=== PATIENT | female | born 1985 ===

== ENCOUNTER 2023-02-01 18:16 | Inpatient (IN) | payer MEDICAID, OTHER ==
[~2023-02-01] VITALS: Ht 165.1 cm; Wt 48.1 kg
[2023-02-01] MEDS ORDERED: SODIUM CHLORIDE 0.9% 1,000 ML IV ONE ×2 (18:45→20:00)
[2023-02-01 19:18] LABS: BASOPHILS % (AUTO) 0.7 % (0.0-2.0); EOSINOPHILS % (AUTO) 2.2 % (1.0-6.0); HEMOGLOBIN 12.1 g/dL (12.0-16.0); LYMPHOCYTES # (AUTO) 3.6 K/uL (1.0-4.8); LYMPHOCYTES % (AUTO) 53.9 % (22.0-44.0); MEAN CORPUSCULAR HEMOGLOBIN 31.1 pg (26.0-34.0); MEAN CORPUSCULAR HGB CONC 33.5 G/dL (31.0-37.0); MEAN CORPUSCULAR VOLUME 93 fL (80-100); MONOCYTES # (AUTO) 0.4 K/uL (0.1-1.0); MONOCYTES % (AUTO) 5.6 % (2.0-9.0); NEUTROPHILS # (AUTO) 2.5 K/uL (1.8-7.7); NEUTROPHILS % (AUTO) 37.6 % (40.0-70.0); PLATELET COUNT (AUTO) 294 K/uL (150-450); RED BLOOD CELL COUNT(AUTO) 3.88 MIL/uL (4.00-5.20); RED CELL DISTRIBUTION WIDTH 12.8 % (11.5-14.5); WHITE BLOOD COUNT (AUTO) 6.7 K/uL (4.5-11.0)
[2023-02-01 19:34] LABS: B-TYPE NATRIURETIC PEPTIDE < 5 pg/mL (0-100)
[2023-02-01 19:38] LABS: ALCOHOL, BLOOD (SERUM) < 3 mg/dL (0-10)
[2023-02-01 19:45] LABS: SALICYLATE 1.2 mg/dL (2.8-20.0); TROPONIN I-HIGH SENSITIVITY Less Than 4 ng/L (<51)
[2023-02-01 19:49] LABS: ALANINE AMINOTRANSFERASE 48 U/L (12-78); ALBUMIN 3.8 g/dL (3.4-5.0); ALKALINE PHOSPHATASE 64 U/L (46-116); ANION GAP 12 mmol/L (8-16); ASPARTATE AMINOTRANSFERASE 40 U/L (15-37); BILIRUBIN,TOTAL 0.7 mg/dL (0.1-1.0); CALCIUM, TOTAL 8.4 mg/dL (8.8-10.5); CARBON DIOXIDE 24 mmol/L (22-29); CHLORIDE 98 mmol/L (98-107); CREATINE KINASE, TOTAL ONLY 305 U/L (26-192); CREATININE 0.71 mg/dL (0.60-1.30); GLOMERULAR FILTR. RATE CALC > 60 mL/min (>60); GLUCOSE,RANDOM 86 mg/dL (70-110); SODIUM SERUM 133 mmol/L (136-145); TOTAL PROTEIN, SERUM 7.3 g/dL (6.4-8.2); UREA NITROGEN, BLOOD 29 mg/dL (7-18)
[2023-02-01 19:56] LABS: POTASSIUM 2.7 mmol/L (3.5-5.1)
[2023-02-01 19:58] LABS: ACETAMINOPHEN < 2 mcg/mL (10-30)
[2023-02-01] MEDS: POTASSIUM CHL 10 MEQ/WATER 50 ML IV SCH ×3 (20:23→22:16)
[2023-02-01] MEDS ORDERED: BISACODYL 10 MG RECTAL RECTAL SUPPOSITORY PR PRN (21:30)
[2023-02-01] MEDS ORDERED: ACETAMINOPHEN 325 MG TABLET PO PRN (21:30)
[2023-02-01] MEDS ORDERED: MAGNESIUM HYDROXIDE SUSPENSION 30 ML UDCUP PO PRN (21:30)
[2023-02-01] MEDS ORDERED: HYDROCODONE/ACETAMINOPHEN 5-325 MG TABLET PO PRN (21:30)
[2023-02-01] MEDS ORDERED: POTASSIUM CHLORIDE 20 MEQ ER TABLET PO PRN (21:30)
[2023-02-01] MEDS ORDERED: ONDANSETRON HCL 4 MG/2 ML VIAL IVP PRN (21:30)
[2023-02-01] MEDS ORDERED: POTASSIUM CHL 10 MEQ/WATER 50 ML IV PRN (21:30)
[2023-02-01] MEDS ORDERED: MORPHINE SULFATE 2 MG/ML SYRINGE IVP PRN (21:30)
[2023-02-01] MEDS ORDERED: ZOLPIDEM TARTRATE 5 MG TABLET PO PRN (21:30)
[2023-02-01] MEDS ORDERED: MAGNESIUM SULFATE 2 GM, MVI, ADULT NO.1 WITH VIT K 10 ML, THIAMINE 100 MG, FOLIC ACID 1... IV ONE ×5 (22:00)
[2023-02-02] MEDS: HEPARIN SODIUM,PORCINE 5,000 UNITS/ML VIAL SQ SCH ×3 (00:28→16:00)
[2023-02-02 06:10] LABS: BASOPHILS % (AUTO) 0.7 % (0.0-2.0); EOSINOPHILS % (AUTO) 2.6 % (1.0-6.0); HEMATOCRIT 33.1 % (36-46); HEMOGLOBIN 11.1 g/dL (12.0-16.0); LYMPHOCYTES # (AUTO) 3.3 K/uL (1.0-4.8); LYMPHOCYTES % (AUTO) 58.8 % (22.0-44.0); MEAN CORPUSCULAR HEMOGLOBIN 31.9 pg (26.0-34.0); MEAN CORPUSCULAR HGB CONC 33.6 G/dL (31.0-37.0); MEAN CORPUSCULAR VOLUME 95 fL (80-100); MONOCYTES # (AUTO) 0.4 K/uL (0.1-1.0); MONOCYTES % (AUTO) 7.5 % (2.0-9.0); NEUTROPHILS # (AUTO) 1.7 K/uL (1.8-7.7); NEUTROPHILS % (AUTO) 30.4 % (40.0-70.0); PLATELET COUNT (AUTO) 221 K/uL (150-450); RED BLOOD CELL COUNT(AUTO) 3.49 MIL/uL (4.00-5.20); WHITE BLOOD COUNT (AUTO) 5.5 K/uL (4.5-11.0)
[2023-02-02 06:17] LABS: ANION GAP 9 mmol/L (8-16); CALCIUM, TOTAL 7.4 mg/dL (8.8-10.5); CARBON DIOXIDE 22 mmol/L (22-29); CHLORIDE 106 mmol/L (98-107); CREATININE 0.48 mg/dL (0.60-1.30); GLOMERULAR FILTR. RATE CALC > 60 mL/min (>60); GLUCOSE,RANDOM 76 mg/dL (70-110); POTASSIUM 3.9 mmol/L (3.5-5.1); SODIUM SERUM 137 mmol/L (136-145); UREA NITROGEN, BLOOD 21 mg/dL (7-18)
[2023-02-02] MEDS: DOCUSATE SODIUM 100 MG CAPSULE PO SCH ×2 (07:50→21:00)
[2023-02-02] MEDS: PANTOPRAZOLE SODIUM 40 MG DR TABLET PO SCH (07:51)
[2023-02-02] MEDS ORDERED: DiphenhydrAMINE HCL 50 MG/ML VIAL ONE (08:29)
[2023-02-02] MEDS ORDERED: LORazepam 2 MG/ML VIAL ONE (08:29)
[2023-02-02] MEDS ORDERED: HALOPERIDOL LACTATE 5 MG/ML VIAL ONE (08:29)
[2023-02-02] MEDS ORDERED: LORazepam 2 MG/ML VIAL IM ONE (08:45)
[2023-02-02] MEDS ORDERED: HALOPERIDOL LACTATE 5 MG/ML VIAL IM ONE (08:45)
[2023-02-02] MEDS ORDERED: DiphenhydrAMINE HCL 50 MG/ML VIAL IM ONE (08:45)
[2023-02-02 09:41] LABS: GLUCOMETER DEV NAME(LOC) ER.6; GLUCOSE,POINT OF CARE 118 MG/DL (70-110)
[2023-02-02] MEDS ORDERED: ZOLPIDEM TARTRATE 10 MG TABLET PO PRN (10:15)
[2023-02-02 11:22] LABS: COVID AG,FIA SOURCE NASAL SWAB
[2023-02-02 11:47] LABS: SARS-COV2 (COVID) ANTIGEN,FIA Negative (Negative)
[2023-02-03] MEDS: HEPARIN SODIUM,PORCINE 5,000 UNITS/ML VIAL SQ SCH
[2023-02-03 02:20] VITALS: RESP 16; TEMP 97.2
[2023-02-03] MEDS: PANTOPRAZOLE SODIUM 40 MG DR TABLET PO SCH ×2 (08:50→09:00)
[2023-02-03] MEDS: DOCUSATE SODIUM 100 MG CAPSULE PO SCH ×4 (08:50→17:00)
[2023-02-03 10:01] VITALS: BP 110/82; PULSE 96; RESP 18; TEMP 97
[2023-02-03 20:58] VITALS: RESP 18
[2023-02-04 07:53] LABS: BASOPHILS % (AUTO) 0.5 % (0.0-2.0); EOSINOPHILS % (AUTO) 1.6 % (1.0-6.0); HEMOGLOBIN 12.5 g/dL (12.0-16.0); LYMPHOCYTES # (AUTO) 2.1 K/uL (1.0-4.8); LYMPHOCYTES % (AUTO) 35.5 % (22.0-44.0); MEAN CORPUSCULAR HEMOGLOBIN 31.7 pg (26.0-34.0); MEAN CORPUSCULAR VOLUME 96 fL (80-100); MONOCYTES # (AUTO) 0.4 K/uL (0.1-1.0); MONOCYTES % (AUTO) 5.8 % (2.0-9.0); NEUTROPHILS # (AUTO) 3.4 K/uL (1.8-7.7); NEUTROPHILS % (AUTO) 56.6 % (40.0-70.0); PLATELET COUNT (AUTO) 249 K/uL (150-450); RED BLOOD CELL COUNT(AUTO) 3.95 MIL/uL (4.00-5.20); RED CELL DISTRIBUTION WIDTH 12.8 % (11.5-14.5)
[2023-02-04 08:02] LABS: ANION GAP 4 mmol/L (8-16); CALCIUM, TOTAL 8.2 mg/dL (8.8-10.5); CARBON DIOXIDE 31 mmol/L (22-29); CHLORIDE 103 mmol/L (98-107); CREATININE 0.53 mg/dL (0.60-1.30); GLOMERULAR FILTR. RATE CALC > 60 mL/min (>60); GLUCOSE,RANDOM 82 mg/dL (70-110); POTASSIUM 3.7 mmol/L (3.5-5.1); SODIUM SERUM 138 mmol/L (136-145); UREA NITROGEN, BLOOD 11 mg/dL (7-18)
[2023-02-04 08:27] VITALS: BP 96/99; PULSE 76; RESP 18; TEMP 98
[2023-02-04] MEDS: PANTOPRAZOLE SODIUM 40 MG DR TABLET PO SCH (08:56)
[2023-02-04] MEDS: DOCUSATE SODIUM 100 MG CAPSULE PO SCH ×2 (08:56→16:45)
[2023-02-04] MEDS: RisperiDONE 1 MG TABLET PO SCH (16:45)
[2023-02-04 21:25] VITALS: BP 106/80; PULSE 78; RESP 18; TEMP 97.6
[2023-02-05 08:41] VITALS: BP 98/59; PULSE 78; RESP 18; TEMP 97.6
[2023-02-05] MEDS: DOCUSATE SODIUM 100 MG CAPSULE PO SCH ×2 (08:44→16:18)
[2023-02-05] MEDS: RisperiDONE 1 MG TABLET PO SCH ×2 (08:44→16:18)
[2023-02-05] MEDS: PANTOPRAZOLE SODIUM 40 MG DR TABLET PO SCH (08:44)
[2023-02-05 09:53] LABS: APPEARANCE,URINE HAZY (CLEAR); BILIRUBIN,URINE NEGATIVE (NEGATIVE); COLOR,URINE YELLOW (YELLOW); GLUCOSE, URINE (UA) NEGATIVE (NEGATIVE); KETONES,URINE NEGATIVE (NEGATIVE); LEUKOCYTE ESTERASE ,URINE LARGE (NEGATIVE); NITRATE,URINE POSITIVE (NEGATIVE); OCCULT BLOOD,URINE TRACE (NEGATIVE); PH,URINE 6.5 (5.0-8.0); PH,URINE DRUG SCREEN 6.5 (5.0-8.0); PROTEIN,URINE TRACE mg/dL (NEGATIVE); SPECIFIC GRAVITIY, URINE 1.019 (1.003-1.030); UROBILINOGEN,URINE <=1.0 mg/dL (<=1.0)
[2023-02-05 10:01] LABS: ALCOHOL, URINE DRUG SCREEN NEGATIVE (NEGATIVE); AMPHET/METH SCREEN,URINE NEGATIVE (NEGATIVE); BARBITURATE SCREEN, URINE NEGATIVE (NEGATIVE); BENZODIAZEPINES SCREEN,URINE NEGATIVE (NEGATIVE); CANNABINOID SCREEN,URINE NEGATIVE (NEGATIVE); COCAINE SCREEN,URINE NEGATIVE (NEGATIVE); METHADONE SCREEN, URINE NEGATIVE (NEGATIVE); OPIATE SCREEN,URINE NEGATIVE (NEGATIVE); PHENCYCLIDINE SCREEN,URINE NEGATIVE (NEGATIVE)
[2023-02-05 10:19] LABS: BACTERIA,URINE Many /HPF (None Seen); SQUAMOUS EPITHELIAL CELL,UR Few /LPF (None Seen)
[2023-02-05] MEDS: LORazepam 2 MG TABLET PO PRN (13:47)
[2023-02-05] MEDS: HALOPERIDOL 5 MG TABLET PO PRN (13:47)
[2023-02-05] MEDS: NITROFURANTOIN MONOHYD/M-CRYST 100 MG CAPSULE [MACROBID] PO SCH (16:18)
[2023-02-05 21:20] VITALS: RESP 18
[2023-02-06] MEDS: DOCUSATE SODIUM 100 MG CAPSULE PO SCH ×2 (08:31→16:48)
[2023-02-06] MEDS: NITROFURANTOIN MONOHYD/M-CRYST 100 MG CAPSULE [MACROBID] PO SCH ×2 (08:31→16:48)
[2023-02-06] MEDS: RisperiDONE 1 MG TABLET PO SCH ×2 (08:31→16:48)
[2023-02-06] MEDS: PANTOPRAZOLE SODIUM 40 MG DR TABLET PO SCH (08:31)
[2023-02-06 12:54] VITALS: RESP 17
[2023-02-06 20:34] VITALS: RESP 18
[2023-02-07] MEDS: LORazepam 2 MG TABLET PO PRN (06:41)
[2023-02-07] MEDS: RisperiDONE 1 MG TABLET PO SCH ×2 (07:49→16:51)
[2023-02-07] MEDS: PANTOPRAZOLE SODIUM 40 MG DR TABLET PO SCH ×2 (07:49→16:53)
[2023-02-07] MEDS: NITROFURANTOIN MONOHYD/M-CRYST 100 MG CAPSULE [MACROBID] PO SCH ×2 (07:49→16:51)
[2023-02-07] MEDS: DOCUSATE SODIUM 100 MG CAPSULE PO SCH ×2 (07:50→16:51)
[2023-02-07 09:53] VITALS: BP 104/67; PULSE 75; RESP 18; TEMP 97.5
[2023-02-07] MEDS: DIVALPROEX SODIUM 500 MG DR TABLET PO SCH (16:52)
[2023-02-07] MEDS: LITHIUM CARBONATE 300 MG CAPSULE PO SCH (16:52)
[2023-02-07 21:52] VITALS: BP 110/70; PULSE 76; RESP 17; TEMP 97.6
[2023-02-08] MEDS: DOCUSATE SODIUM 100 MG CAPSULE PO SCH ×2 (08:22→16:32)
[2023-02-08] MEDS: NITROFURANTOIN MONOHYD/M-CRYST 100 MG CAPSULE [MACROBID] PO SCH ×2 (08:22→16:33)
[2023-02-08] MEDS: DIVALPROEX SODIUM 500 MG DR TABLET PO SCH ×2 (08:22→16:32)
[2023-02-08] MEDS: RisperiDONE 1 MG TABLET PO SCH ×2 (08:22→16:32)
[2023-02-08] MEDS: LITHIUM CARBONATE 300 MG CAPSULE PO SCH ×2 (08:23→16:33)
[2023-02-08 09:28] VITALS: BP 107/66; PULSE 60; RESP 18; TEMP 98
[2023-02-08 21:48] VITALS: RESP 18
[2023-02-09] MEDS: RisperiDONE 1 MG TABLET PO SCH ×2 (08:22→16:15)
[2023-02-09] MEDS: LITHIUM CARBONATE 300 MG CAPSULE PO SCH ×2 (08:22→16:05)
[2023-02-09] MEDS: DOCUSATE SODIUM 100 MG CAPSULE PO SCH ×2 (08:22→16:05)
[2023-02-09] MEDS: PANTOPRAZOLE SODIUM 40 MG DR TABLET PO SCH (08:22)
[2023-02-09] MEDS: NITROFURANTOIN MONOHYD/M-CRYST 100 MG CAPSULE [MACROBID] PO SCH ×2 (08:22→16:05)
[2023-02-09] MEDS: DIVALPROEX SODIUM 500 MG DR TABLET PO SCH ×2 (08:22→16:05)
[2023-02-09 08:35] VITALS: BP 101/50; PULSE 86; RESP 18; TEMP 97.5
[2023-02-09 20:40] VITALS: BP 126/63; PULSE 100; RESP 18; TEMP 97.8
[2023-02-10] MEDS: LORazepam 2 MG TABLET PO PRN (03:58)
[2023-02-10] MEDS: DOCUSATE SODIUM 100 MG CAPSULE PO SCH ×2 (09:22→16:48)
[2023-02-10] MEDS: PANTOPRAZOLE SODIUM 40 MG DR TABLET PO SCH (09:22)
[2023-02-10] MEDS: NITROFURANTOIN MONOHYD/M-CRYST 100 MG CAPSULE [MACROBID] PO SCH ×2 (09:22→16:47)
[2023-02-10] MEDS: RisperiDONE 1 MG TABLET PO SCH ×2 (09:22→16:48)
[2023-02-10] MEDS: DIVALPROEX SODIUM 500 MG DR TABLET PO SCH ×2 (09:22→16:48)
[2023-02-10] MEDS: LITHIUM CARBONATE 300 MG CAPSULE PO SCH ×2 (09:22→16:48)
[2023-02-10 11:37] VITALS: RESP 18
[2023-02-10 16:45] VITALS: BP 104/59; PULSE 85; RESP 18; TEMP 97.5
[2023-02-10 21:27] VITALS: BP 91/60; PULSE 88; RESP 18; TEMP 98.5
[2023-02-11 07:58] LABS: LITHIUM 0.46 mmol/L (0.60-1.20)
[2023-02-11] MEDS: NITROFURANTOIN MONOHYD/M-CRYST 100 MG CAPSULE [MACROBID] PO SCH ×2 (09:04→16:22)
[2023-02-11] MEDS: PANTOPRAZOLE SODIUM 40 MG DR TABLET PO SCH (09:06)
[2023-02-11] MEDS: LITHIUM CARBONATE 300 MG CAPSULE PO SCH ×2 (09:06→16:22)
[2023-02-11] MEDS: DOCUSATE SODIUM 100 MG CAPSULE PO SCH ×2 (09:06→16:22)
[2023-02-11] MEDS: DIVALPROEX SODIUM 500 MG DR TABLET PO SCH ×2 (09:07→16:22)
[2023-02-11] MEDS: RisperiDONE 1 MG TABLET PO SCH ×2 (09:07→16:22)
[2023-02-11 11:23] VITALS: BP 99/69; PULSE 76; RESP 17; TEMP 98
[2023-02-11] MEDS: LORazepam 2 MG TABLET PO PRN (14:20)
[2023-02-11 21:53] VITALS: RESP 18
[2023-02-12 09:23] VITALS: BP 103/77; PULSE 88; RESP 18; TEMP 97.2
[2023-02-12] MEDS: RisperiDONE 1 MG TABLET PO SCH ×2 (09:28→16:11)
[2023-02-12] MEDS: LITHIUM CARBONATE 300 MG CAPSULE PO SCH ×2 (09:28→16:11)
[2023-02-12] MEDS: NITROFURANTOIN MONOHYD/M-CRYST 100 MG CAPSULE [MACROBID] PO SCH ×2 (09:28→16:11)
[2023-02-12] MEDS: PANTOPRAZOLE SODIUM 40 MG DR TABLET PO SCH (09:28)
[2023-02-12] MEDS: DOCUSATE SODIUM 100 MG CAPSULE PO SCH ×2 (09:28→16:11)
[2023-02-12] MEDS: DIVALPROEX SODIUM 500 MG DR TABLET PO SCH ×2 (09:28→16:11)
[2023-02-12] MEDS: LORazepam 2 MG TABLET PO PRN (20:27)
[2023-02-12] MEDS: HALOPERIDOL 5 MG TABLET PO PRN (20:27)
[2023-02-12 20:50] VITALS: BP 110/79; PULSE 77; RESP 18; TEMP 97.1
[2023-02-13] MEDS: DOCUSATE SODIUM 100 MG CAPSULE PO SCH (09:06)
[2023-02-13] MEDS: RisperiDONE 1 MG TABLET PO SCH (09:06)
[2023-02-13] MEDS: LITHIUM CARBONATE 300 MG CAPSULE PO SCH (09:06)
[2023-02-13] MEDS: PANTOPRAZOLE SODIUM 40 MG DR TABLET PO SCH (09:06)
[2023-02-13] MEDS: DIVALPROEX SODIUM 500 MG DR TABLET PO SCH (09:06)
[2023-02-13 11:03] VITALS: BP 125/82; PULSE 96; RESP 18; TEMP 96.8
[2023-02-13] MEDS ORDERED: DOCU-385 PO (13:43)
[2023-02-13] MEDS ORDERED: PANT-31 PO (13:43)
[2023-02-13] MEDS ORDERED: DIVA-112 PO (15:10)
[2023-02-13] MEDS ORDERED: LITH300C3 PO (15:10)
[2023-02-13] MEDS ORDERED: RISP1TAB98 PO (15:10)
== END 2023-02-13 15:30 | disposition home or self-care (01) | DRG 751 ==
LOC: EDBD 18:17 → EMS 18:17 → 3EC 02-03 00:01 → 3EI 02-03 02:43
PROVIDERS: ADMIT Psychiatry & Neurology Psychiatry; ATTEND Psychiatry & Neurology Psychiatry
DX: F29 Unspecified psychosis not due to a substance or known physiological condition (principal); G92.9 Unspecified toxic encephalopathy; E43 Unspecified severe protein-calorie malnutrition; E87.6 Hypokalemia; Z68.1 Body mass index [BMI] 19.9 or less, adult; Z20.822 Contact with and (suspected) exposure to COVID-19; F19.10 Other psychoactive substance abuse, uncomplicated; F41.9 Anxiety disorder, unspecified; F20.9 Schizophrenia, unspecified; G47.00 Insomnia, unspecified; K59.00 Constipation, unspecified; R09.02 Hypoxemia; Z59.00 Homelessness unspecified
CPT/HCPCS: 70450; 71045; 72125; 80048; 80053; 80164; 80178; 80307; 81001; 82550; 82962; 83880; 84132; 84484; 84703; 85025; 87086; 87186; 93005; 99285; G0480; G0481; J1200; J1630; J1644; J2060; J3411; J3475; J3480; J3490; J7030; 36415-L1; 36415-TC